=== PATIENT | female | born 1960 | race Caucasian/White ===

== ENCOUNTER 2023-03-05 12:25 | Observation (INO) ==
[2023-03-05 12:41] VITALS: BMI 15.6
--- NOTE | 2023-03-05 14:47 | DR.DIZZY ---
HPI Time seen Time Seen by Provider: 03/05/23 14:46 PCP Primary Care Physician: MOSHE HADLEY Complaint Chief Complaint:: PT HAD OUTPATIENT LABS DONE ON 02/26/23 AND HGB WAS 6.7. PT STATES THTA FOR THE PAST SEVERAL WEEKS SHE HAS HAD WORSENING SHORTNESS OF BREATH WITH EXERTION, DIZZINESS AND FATIGUE. Self Treatment fo Chief Complaint: PT HAS BEEN TAKING MULTIVITAMINS WITH IRON COVID-19 Coronavirus risk:travel/contact w/high risk person: No Has patient experienced Coronavirus symptoms: No Mode of Arrival Mode of Arrival: Wheelchair Timing Onset of Chief Complaint: 03/05/23 PMH PMH Past Medical History: Yes Past Medical History: Anemia and Anxiety Past Surgical History: Yes Surgical History: Appendectomy, Cholecystectomy, Hysterectomy and Ortho Surgery Past Surgical History Comment: HERNIA REPAIR, RIGHT FOOT SURGERY Family History History of Family Medical Conditions: Yes Family Medical History: Diabetes Mellitus, Cancer, [place], Coronary Artery Disease and Hypertension Social History Does patient currently use any type of tobacco product: Yes Have you used tobacco products in the last 12 months: Yes Type of Tobacco Use: Cigarettes Does any household member use tobacco: No Alcohol Use: None Do you use any recreational Drugs:: No Lives With: Spouse Lives Where: Home Travel Risk Coronavirus risk:travel/contact w/high risk person: No Has patient experienced Coronavirus symptoms: No Infectious screening In the last 2 months have you had wt loss of >10#?: NO Have you had fever, night sweats or hemotysis?: No Have you traveled outside the country in the last 6 months?: No Isolation: Standard PE Vital Signs Vitals: Temperature 98.2 F Pulse Rate 73 Respiratory Rate 18 Blood Pressure 98/50 O2 Sat by Pulse Oximetry 97 ROR Labs Reviewed Result Diagrams: 03/06/23 04:13 03/06/23 04:13 Laboratory: WBC 7.1 X10^3/uL (3.6-10.0) 03/05/23 13:39 RBC 2.70 X10^6/uL (3.5-5.4) L 03/05/23 13:39 Hgb 6.3 g/dL (12.0-16.0) L* 03/05/23 13:39 Hct 19.8 % (36.0-47.0) L* 03/05/23 13:39 MCV 73.4 fL (80.0-100.0) L 03/05/23 13:39 MCH 23.2 pg (27.0-34.0) L 03/05/23 13:39 MCHC 31.6 g/dL (33.0-35.0) L 03/05/23 13:39 RDW 18.8 % (11.6-16.5) H 03/05/23 13:39 Plt Count 361 X10^3/uL (150.0-450.0) 03/05/23 13:39 Plt Count Comment Adequate (ADEQUATE) 03/05/23 13:39 MPV 7.7 fL (7.4-11.0) 03/05/23 13:39 Neut % (Auto) 69.8 % (42.0-75.0) 03/05/23 13:39 Lymph % (Auto) 21.3 % (21.0-51.0) 03/05/23 13:39 [place] % (Auto) 7.7 % (0.0-13.0) 03/05/23 13:39 Eos % (Auto) 0.8 % (0.9-2.9) L 03/05/23 13:39 Baso % (Auto) 0.4 % (0.2-1.0) 03/05/23 13:39 Neut # (Auto) 4.9 x10^3/uL (2.2-4.8) H 03/05/23 13:39 Lymph # (Auto) 1.5 X10^3/uL (1.3-2.9) 03/05/23 13:39 [place] # (Auto) 0.5 x10^3/uL (0.3-0.8) 03/05/23 13:39 Eos # (Auto) 0.1 x10^3/uL (0.0-0.2) 03/05/23 13:39 Baso # (Auto) 0.0 X10^3/uL (0.0-0.1) 03/05/23 13:39 Absolute Nucleated RBC 0.1 /100WBC 03/05/23 13:39 Plt Morphology Comment Normal (NORMAL) 03/05/23 13:39 RBC Morphology Abnormal (NORMAL) A 03/05/23 13:39 Hypochromasia 1+ A 03/05/23 13:39 Anisocytosis Slight A 03/05/23 13:39 Microcytosis Slight A 03/05/23 13:39 Absolute Retic 0.1000 10^6/uL 03/05/23 13:39 Percent Retic 3.65 % (0.8-2.2) H 03/05/23 13:39 Sodium 133 mmol/L (136-145) L 03/05/23 13:39 Corrected Sodium TNP 03/05/23 13:39 Potassium 4.3 mmol/L (3.5-5.1) 03/05/23 13:39 Chloride 102 mmol/L (98-107) 03/05/23 13:39 Carbon Dioxide 26.9 mmol/L (21-32) 03/05/23 13:39 BUN 13 mg/dL (7-18) 03/05/23 13:39 Creatinine 0.86 mg/dL (0.55-1.02) 03/05/23 13:39 Est GFR (MDRD) Af Amer > 60 (>60) 03/05/23 13:39 Est GFR (MDRD) Non-Af > 60 (>60) 03/05/23 13:39 Glucose 100 mg/dL (65-99) H 03/05/23 13:39 Calcium 7.9 mg/dL (8.5-10.1) L 03/05/23 13:39 Corrected Calcium 8.8 mg/dL (8.5-10.1) 03/05/23 13:39 Iron 8 ug/dL (50-175) L 03/05/23 13:39 Ferritin 3 ng/mL (8-252) L 03/05/23 13:39 Total Bilirubin 0.20 mg/dL (0.2-1.0) 03/05/23 13:39 AST 17 Units/L (15-37) 03/05/23 13:39 ALT 14 Units/L (12-78) 03/05/23 13:39 Alkaline Phosphatase 69 Units/L (46-116) 03/05/23 13:39 Total Protein 6.6 g/dL (6.4-8.2) 03/05/23 13:39 Albumin 2.9 g/dL (3.4-5.0) L 03/05/23 13:39 Globulin 3.7 g/dL (2.5-4.5) 03/05/23 13:39 Albumin/Globulin Ratio 0.8 Ratio (1.1-2.1) L 03/05/23 13:39 Vitamin B12 609 pg/mL (193-986) 03/05/23 13:39 Folate 13.6 ng/mL (>8.6) 03/05/23 13:39 Opioid Opioid Risk Tool Age (Seth box if 16-45): No History of Preadolescent Sexual Abuse: No Total: 0 Total Score Risk Category: Low Risk Copyright: Mark CUELLAR predicting aberrant behaviors Discharge Plan Diagnosis Discharge Problem: Anemia Discharge Plan Patient Disposition: ADMITTED INPATIENT Condition: Stable Orders to Discharge Patient Discharge Orders: Discharge (Routine); Ordered 03/06/23 Ordered By: Brandon Blunt
[2023-03-05 14:59] LABS: BASOPHILS % (AUTO) 0.4 % (0.2-1.0); EOSINOPHILS # (AUTO) 0.1 x10^3/uL (0.0-0.2); EOSINOPHILS % (AUTO) 0.8 % (0.9-2.9); LYMPHOCYTES # (AUTO) 1.5 X10^3/uL (1.3-2.9); LYMPHOCYTES % (AUTO) 21.3 % (21.0-51.0); MEAN CORPUSCULAR HEMOGLOBIN 23.2 pg (27.0-34.0); MEAN CORPUSCULAR HGB CONC 31.6 g/dL (33.0-35.0); MEAN CORPUSCULAR VOLUME 73.4 fL (80.0-100.0); MEAN PLATELET VOLUME 7.7 fL (7.4-11.0); MONOCYTES # (AUTO) 0.5 x10^3/uL (0.3-0.8); MONOCYTES % (AUTO) 7.7 % (0.0-13.0); NEUTROPHILS # (AUTO) 4.9 x10^3/uL (2.2-4.8); NEUTROPHILS % (AUTO) 69.8 % (42.0-75.0); PLATELET COUNT 361 X10^3/uL (150.0-450.0); RED CELL DISTRIBUTION WIDTH 18.8 % (11.6-16.5); WHITE BLOOD COUNT 7.1 X10^3/uL (3.6-10.0)
[2023-03-05 15:07] LABS: ALANINE AMINOTRANSFERASE 14 Units/L (12-78); ALBUMIN 2.9 g/dL (3.4-5.0); ALKALINE PHOSPHATASE 69 Units/L (46-116); ASPARTATE AMINO TRANSFERASE 17 Units/L (15-37); BLOOD UREA NITROGEN 13 mg/dL (7-18); CALCIUM 7.9 mg/dL (8.5-10.1); CARBON DIOXIDE 26.9 mmol/L (21-32); CHLORIDE 102 mmol/L (98-107); COR CA(FOR HYPOALB) 8.8 mg/dL (8.5-10.1); CREATININE 0.86 mg/dL (0.55-1.02); GLUCOSE 100 mg/dL (65-99); POTASSIUM 4.3 mmol/L (3.5-5.1); SODIUM 133 mmol/L (136-145); TOTAL PROTEIN 6.6 g/dL (6.4-8.2); eGFR NON BLACK RACES > 60 (>60)
[2023-03-05 15:12] LABS: HEMATOCRIT 19.8 % (36.0-47.0); HEMOGLOBIN 6.3 g/dL (12.0-16.0)
[2023-03-05 15:33] LABS: ANISOCYTOSIS SLIGHT; HYPOCHROMASIA 1+; MICROCYTOSIS SLIGHT; PLATELET MORPHOLOGY COMMENT NORMAL (NORMAL)
[2023-03-05 16:06] LABS: RETICULOCYTE % 3.65 % (0.8-2.2)
[2023-03-05] MEDS ORDERED: NS 1,000 ML IV 1,000 ML ONE (16:39)
[2023-03-05] MEDS: NS 1,000 ML IV 1,000 ML IV SCH (16:40)
[2023-03-06 01:13] LABS: HEMATOCRIT 23.5 % (36.0-47.0); HEMOGLOBIN 7.6 g/dL (12.0-16.0)
[2023-03-06 04:58] LABS: BASOPHILS % (AUTO) 0.5 % (0.2-1.0); EOSINOPHILS # (AUTO) 0.1 x10^3/uL (0.0-0.2); EOSINOPHILS % (AUTO) 1.6 % (0.9-2.9); HEMATOCRIT 24.6 % (36.0-47.0); LYMPHOCYTES # (AUTO) 2.4 X10^3/uL (1.3-2.9); LYMPHOCYTES % (AUTO) 35.2 % (21.0-51.0); MEAN CORPUSCULAR HEMOGLOBIN 24.4 pg (27.0-34.0); MEAN CORPUSCULAR HGB CONC 32.7 g/dL (33.0-35.0); MEAN CORPUSCULAR VOLUME 74.5 fL (80.0-100.0); MEAN PLATELET VOLUME 7.1 fL (7.4-11.0); MONOCYTES # (AUTO) 0.9 x10^3/uL (0.3-0.8); MONOCYTES % (AUTO) 13.2 % (0.0-13.0); NEUTROPHILS # (AUTO) 3.4 x10^3/uL (2.2-4.8); NEUTROPHILS % (AUTO) 49.5 % (42.0-75.0); PLATELET COUNT 366 X10^3/uL (150.0-450.0); RED CELL DISTRIBUTION WIDTH 18.3 % (11.6-16.5); WHITE BLOOD COUNT 6.8 X10^3/uL (3.6-10.0)
[2023-03-06 05:11] LABS: ALANINE AMINOTRANSFERASE 13 Units/L (12-78); ALBUMIN 2.6 g/dL (3.4-5.0); ALKALINE PHOSPHATASE 75 Units/L (46-116); ASPARTATE AMINO TRANSFERASE 13 Units/L (15-37); BLOOD UREA NITROGEN 15 mg/dL (7-18); CALCIUM 7.5 mg/dL (8.5-10.1); CARBON DIOXIDE 28.6 mmol/L (21-32); CHLORIDE 106 mmol/L (98-107); COR CA(FOR HYPOALB) 8.6 mg/dL (8.5-10.1); CREATININE 0.77 mg/dL (0.55-1.02); GLUCOSE 95 mg/dL (65-99); POTASSIUM 3.6 mmol/L (3.5-5.1); SODIUM 142 mmol/L (136-145); TOTAL PROTEIN 5.7 g/dL (6.4-8.2); eGFR NON BLACK RACES > 60 (>60)
[2023-03-06] MEDS: NS 1,000 ML IV 1,000 ML IV SCH (05:53)
[2023-03-06 05:58] LABS: ANISOCYTOSIS SLIGHT; HYPOCHROMASIA SLIGHT; MICROCYTOSIS SLIGHT; PLATELET MORPHOLOGY COMMENT NORMAL (NORMAL)
[2023-03-06] MEDS ORDERED: K-DUR TAB 20 MEQ PO PRN (06:01)
[2023-03-06] MEDS ORDERED: MAGNESIUM SULFATE 1 GRAM/100 mL PREMIX 1 G/100 ML BAG IV PRN (06:01)
[2023-03-06] MEDS ORDERED: MICRO K EXTEN CAP 10 MEQ PO PRN (06:01)
[2023-03-06] MEDS ORDERED: K-RIDER 10 MEQ/NS 100 ML 10 MEQ/100 ML BAG IV PRN (06:01)
[2023-03-06] MEDS ORDERED: POTASSIUM CHLORIDE LIQ 20 MEQ UDC PO PRN (06:01)
[2023-03-06] MEDS ORDERED: KLOR-CON PO PRN (06:01)
[2023-03-06] MEDS ORDERED: POTASSIUM CHL 40 MEQ/NS 0.45% 500 ML IV PRN (06:01)
[2023-03-06] MEDS ORDERED: POTASSIUM CHL 60 MEQ/NS 0.45% 500 ML IV PRN (06:01)
[2023-03-06 09:58] VITALS: BP 133/66
--- NOTE | 2023-03-07 06:52 | DR.SSS ---
SHORT STAY SUMMARY Admission Date Date of Admission: 03/05/23 Discharge Date Discharge Date: 03/06/23 Admission Diagnoses Admission Diagnoses: Symptomatic anemia Discharge Diagnoses Discharge Diagnoses: Symptomatic anemia Chief Complaint Chief Complaint: Fatigue, dizziness, lightheaded History of Present Illness History of Present Illness: Pt is a 63 year old female past medical history of iron deficiency anemia presenting with fatigue, dizziness, lightheaded, and generalized weakness. She presented to the ED after her pcp reported she had low hemoglobin levels. Past Medical History Past Medical History: Anemia and Anxiety Past Surgical History Surgical History: Appendectomy, Cholecystectomy, Hysterectomy and Ortho Surgery Allergies Allergies Allergy/AdvReac Type Severity Reaction Status Date / Time cholestyramine AdvReac Verified 03/05/23 15:59 codeine AdvReac Verified 03/05/23 12:42 Medications Home Medications: cholestyramine Adverse Reaction (Verified 03/05/23 15:59) codeine Adverse Reaction (Verified 03/05/23 12:42) CONTINUE taking the following medications alprazolam 1 mg tablet 1 mg PO QDAY PRN Anxiety 03/05/23 [History] New Prescriptions ferrous sulfate 325 mg (65 mg iron) tablet (Iron (ferrous sulfate)) 325 mg PO BID #30 tabs 03/06/23 [Rx] Family History Family Medical History: Diabetes Mellitus, Cancer, [place], Coronary Artery Disease and Hypertension Social History Does patient currently use any type of tobacco product: Yes Have you used tobacco products in the last 12 months: Yes Type of Tobacco Use: Cigarettes Does any household member use tobacco: No Alcohol Use: None Drug Use: None Review of Systems Constitutional: Weakness Eyes: No Symptoms Reported ENT: No Symptoms Reported Respiratory: No Symptoms Reported Cardiovascular: No Symptoms Reported Gastrointestinal: No Symptoms Reported Genitourinary: No Symptoms Reported Musculoskeletal: No Symptoms Reported Skin: No Symptoms Reported Neurological: No Symptoms Reported Physical Exam Vital Signs: Last Vital Signs Temp 97.6 F 03/06/23 08:00 Pulse 79 03/06/23 08:00 Resp 18 03/06/23 08:00 BP 133/66 03/06/23 08:00 Pulse Ox 98 03/06/23 08:00 O2 Del Method Room Air 03/06/23 08:00 Oriented: Normal Eyes: Normal Ear: Normal Nose: Normal Throat: Normal Respiratory: Clear Throughout Cardiovascular: Normal : Normal Auscultation: Bowel Sounds: Normal Palpation: Normal Tenderness: Normal Skin: Normal Musculoskeletal: Normal Psychiatric: Normal Speech Pattern: Clear Labs Labs: Laboratory Last Values WBC 6.8 X10^3/uL (3.6-10.0) 03/06/23 04:13 RBC 3.30 X10^6/uL (3.5-5.4) L 03/06/23 04:13 Hgb 8.0 g/dL (12.0-16.0) L 03/06/23 04:13 Hct 24.6 % (36.0-47.0) L 03/06/23 04:13 MCV 74.5 fL (80.0-100.0) L 03/06/23 04:13 MCH 24.4 pg (27.0-34.0) L 03/06/23 04:13 MCHC 32.7 g/dL (33.0-35.0) L 03/06/23 04:13 RDW 18.3 % (11.6-16.5) H 03/06/23 04:13 Plt Count 366 X10^3/uL (150.0-450.0) 03/06/23 04:13 Plt Count Comment Adequate (ADEQUATE) 03/06/23 04:13 MPV 7.1 fL (7.4-11.0) L 03/06/23 04:13 Neut % (Auto) 49.5 % (42.0-75.0) 03/06/23 04:13 Lymph % (Auto) 35.2 % (21.0-51.0) 03/06/23 04:13 [place] % (Auto) 13.2 % (0.0-13.0) H 03/06/23 04:13 Eos % (Auto) 1.6 % (0.9-2.9) 03/06/23 04:13 Baso % (Auto) 0.5 % (0.2-1.0) 03/06/23 04:13 Neut # (Auto) 3.4 x10^3/uL (2.2-4.8) 03/06/23 04:13 Lymph # (Auto) 2.4 X10^3/uL (1.3-2.9) 03/06/23 04:13 [place] # (Auto) 0.9 x10^3/uL (0.3-0.8) H 03/06/23 04:13 Eos # (Auto) 0.1 x10^3/uL (0.0-0.2) 03/06/23 04:13 Baso # (Auto) 0.0 X10^3/uL (0.0-0.1) 03/06/23 04:13 Absolute Nucleated RBC 0.1 /100WBC 03/06/23 04:13 Plt Morphology Comment Normal (NORMAL) 03/06/23 04:13 RBC Morphology Abnormal (NORMAL) A 03/06/23 04:13 Hypochromasia Slight A 03/06/23 04:13 Anisocytosis Slight A 03/06/23 04:13 Microcytosis Slight A 03/06/23 04:13 Absolute Retic 0.1000 10^6/uL 03/05/23 13:39 Percent Retic 3.65 % (0.8-2.2) H 03/05/23 13:39 Sodium 142 mmol/L (136-145) 03/06/23 04:13 Corrected Sodium TNP 03/06/23 04:13 Potassium 3.6 mmol/L (3.5-5.1) 03/06/23 04:13 Chloride 106 mmol/L (98-107) 03/06/23 04:13 Carbon Dioxide 28.6 mmol/L (21-32) 03/06/23 04:13 BUN 15 mg/dL (7-18) 03/06/23 04:13 Creatinine 0.77 mg/dL (0.55-1.02) 03/06/23 04:13 Est GFR (MDRD) Af Amer > 60 (>60) 03/06/23 04:13 Est GFR (MDRD) Non-Af > 60 (>60) 03/06/23 04:13 Glucose 95 mg/dL (65-99) 03/06/23 04:13 Calcium 7.5 mg/dL (8.5-10.1) L 03/06/23 04:13 Corrected Calcium 8.6 mg/dL (8.5-10.1) 03/06/23 04:13 Magnesium 1.8 mg/dL (2.0-2.9) L 03/06/23 04:13 Iron 8 ug/dL (50-175) L 03/05/23 13:39 Ferritin 3 ng/mL (8-252) L 03/05/23 13:39 Total Bilirubin 0.30 mg/dL (0.2-1.0) 03/06/23 04:13 AST 13 Units/L (15-37) L 03/06/23 04:13 ALT 13 Units/L (12-78) 03/06/23 04:13 Alkaline Phosphatase 75 Units/L (46-116) 03/06/23 04:13 Total Protein 5.7 g/dL (6.4-8.2) L 03/06/23 04:13 Albumin 2.6 g/dL (3.4-5.0) L 03/06/23 04:13 Globulin 3.1 g/dL (2.5-4.5) 03/06/23 04:13 Albumin/Globulin Ratio 0.8 Ratio (1.1-2.1) L 03/06/23 04:13 Vitamin B12 609 pg/mL (193-986) 03/05/23 13:39 Folate 13.6 ng/mL (>8.6) 03/05/23 13:39 Blood Type O POSITIVE 03/05/23 16:53 Antibody Screen Negative 03/05/23 16:53 Crossmatch See Detail 03/05/23 16:53 Assessment/Plan (1) Symptomatic anemia: Hospital Course Hospital Course: Pt admitted for symptomatic anemia. Her hemoglobin was 6.3. Other labs: Wbc 6.8, Plt 366, Na 142, K 3.6, Creatinine 0.77, Glucose 95. Pt was typed and crossed and then transfused 2 units of packed red blood cells. Her hemoglobin responded appropriately, stabilized, and was 8.0 on discharge. She has a history of iron deficiency anemia and has had a colonoscopy this year that was normal. Pt symptoms resolved and she was discharged in stable condition. Rx ferrous sulfate. Instructed to follow up with pcp in 1 week. Discharge Medications Discharge Medications: Home Medication List alprazolam 1 mg tablet 1 mg PO QDAY PRN Anxiety 03/05/23 [History] ferrous sulfate 325 mg (65 mg iron) tablet (Iron (ferrous sulfate)) 325 mg PO BID #30 tabs 03/06/23 [Rx] Prescriptions: ferrous sulfate [Iron (ferrous sulfate)] Brandon Blunt Discharge Disposition Discharge Disposition: Home Discharge Plan Discharge Plan Patient Disposition: 01 HOME, SELF-CARE Condition: Stable Health Concerns: Post Hospitalization: new medications and changes needed to prevent readmission or further decline. Pt educated and given instructions on all concerns. Care Plan Goals: Problem: Pain/Alteration in Comfort Goal: Improve/ Resolve Pain; Achieve Pain Tolerance Instructions: Take pain medications as prescribed. Contact your primary care provider if your pain is unrelieved or worsens. Follow up with primary care provider as directed. Plan of Treatment: Continue with present treatment and follow up plan. Pt is to keep follow up appointment as instructed and take medications as ordered. Prescriptions: New ferrous sulfate [Iron (ferrous sulfate)] 325 mg (65 mg iron) Tablet 325 mg PO BID Qty: 30 0RF No Action alprazolam 1 mg tablet 1 mg PO QDAY PRN (Reason: Anxiety) Orders to Discharge Patient Discharge Orders: Discharge (Routine); Ordered 03/06/23 Ordered By: Brandon Blunt Follow ups/Referrals Follow ups/Referrals: MICAELA CONTRERAS [Nurse Practitioner] - 03/13/23 9:30 am Instructions Instructions: Anemia Stand Alone Forms: Excuse From Work or School
== END 2023-03-06 11:00 | disposition home or self-care (01) ==
LOC: MED/SURG 12:25 → ER 12:25 → MED/SURG 16:33
PROVIDERS: ADMIT Family Medicine; ATTEND Family Medicine
DX: E87.1 Hypo-osmolality and hyponatremia; R53.83 Other fatigue; R42 Dizziness and giddiness; D64.9 Anemia, unspecified; R06.02 Shortness of breath; F41.8 Other specified anxiety disorders